=== PATIENT | female | born 2000 | race Caucasian/White ===

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

== ENCOUNTER 2019-02-09 21:34 | Emergency (ER) | payer SELFPAY ==
[~2019-02-09] VITALS: Ht 149.9 cm; Wt 60.8 kg
[~2019-02-09 21:34] MED LIST: CEPH-443 PO; DOCU-144 PO; IBUP-1542 PO; IBUP-1561 PO
[2019-02-09 21:36] VITALS: Ht 149.9 cm; Wt 60.8 kg
[2019-02-10] MEDS ORDERED: SOD CHLORIDE 0.9% 1,000 ML IV ONE (00:30)
[2019-02-10] MEDS ORDERED: IOHEXOL 300MG/ML 150 ML BTL ONE (00:42)
[2019-02-10] MEDS ORDERED: SOD CHLORIDE 0.9% 100 ML ONE (00:42)
[2019-02-10] MEDS ORDERED: CEFTRIAXONE 1 GM INJ IM ONE (02:30)
[2019-02-10 03:12] VITALS: BP 95/51; PULSE 67; RESP 18
== END 2019-02-10 03:13 | disposition home or self-care (01) ==
LOC: FTE 21:34
DX: N39.0 Urinary tract infection, site not specified (principal); K59.00 Constipation, unspecified; D28.7 Benign neoplasm of other specified female genital organs
CPT/HCPCS: 36415; 74177; 76830; 76856; 80053; 81001; 81025; 82150; 83690; 85025; 87086; 96360; 96361; 96372; 99285; J0696; J7030; Q9967; 81003